=== PATIENT | male | born 1990 | race Two or more races ===

== ENCOUNTER 2019-01-19 16:19 | Emergency (ER) | payer OTHER ==
[~2019-01-19] VITALS: Ht 198.1 cm; Wt 133.8 kg
[2019-01-19 20:40] VITALS: BP 146/82
== END 2019-01-19 20:55 | disposition home or self-care (01) ==
LOC: ER 16:19 → EDBD 16:19 → ER 20:55
DX: S53.401A Unspecified sprain of right elbow, initial encounter (principal); S50.811A Abrasion of right forearm, initial encounter; F17.210 Nicotine dependence, cigarettes, uncomplicated; X58.XXXA Exposure to other specified factors, initial encounter; Y93.89 Activity, other specified; Y92.89 Other specified places as the place of occurrence of the external cause; Y99.8 Other external cause status
CPT/HCPCS: 73080; 73090